=== PATIENT | male | born 1945 | race Caucasian/White ===

== ENCOUNTER 2021-05-26 05:03 | Inpatient (IN) | payer MEDICARE, OTHER ==
[~2021-05-26] VITALS: Ht 180.3 cm; Wt 88.7 kg
--- NOTE | 2021-05-26 05:20 | NUR ---
PT C/O OF RIGHT FLANK PAIN SINCE 2299 LADT NIGHT REPORTS NAUSEA, VOMITTIN, AND DIARRHEA. DENIES CP, SOB, AND HEADCAHE. [id number] TO MONIOTORS, BP ELEVATED, PT APPEARS IN PAIN. BED IN LOW, RAILS ENGAGED. CALL LIGHT ON LAP.
--- NOTE | 2021-05-26 05:24 | NUR ---
pt states he believes he has kidney stones hx of kidney stones.
[2021-05-26] MEDS ORDERED: ONDANSETRON 2MG/ML, 2ML IVPush ONE (05:30)
[2021-05-26] MEDS ORDERED: KETOROLAC 30 MG/1 ML IVPush ONE (05:30)
[2021-05-26] MEDS ORDERED: SODIUM CHLORIDE FLUSH 10ML SYR IVF ONE (05:30)
[2021-05-26] MEDS ORDERED: MORPHINE SULFATE 4 MG/ML, 1ML ONE ×2 (05:37→10:17)
[2021-05-26] MEDS ORDERED: ONDANSETRON 2MG/ML, 2ML ONE (05:37)
[2021-05-26] MEDS ORDERED: KETOROLAC 30 MG/1 ML ONE (05:37)
[2021-05-26] MEDS: MORPHINE SULFATE 4 MG/ML, 1ML IVPush PRN ×2 (05:50→10:19)
[2021-05-26] MEDS: PLEASE ENTER ALLERGIES MC SCH ×2 (06:00→14:00)
[2021-05-26 06:22] LABS: BASOPHILS % (AUTO) 1 % (0-1); EOSINOPHILS % (AUTO) 0 % (1-7); LYMPHOCYTES % (AUTO) 11 % (22-44); MEAN CORPUSCULAR HEMOGLOBIN 30.6 pg (27.5-34.5); MEAN CORPUSCULAR HGB CONC 33.8 g/dL (33.2-36.2); MEAN PLATELET VOLUME 9.5 fL (7.4-10.4); MONOCYTES % (AUTO) 2 % (2-9); NEUTROPHILS % (AUTO) 86 % (42-75); PLATELET COUNT 209 x10^3/uL (130-400); RED BLOOD COUNT 4.57 x10^6/uL (4.38-5.82); RED CELL DISTRIBUTION WIDTH 13.8 % (9.4-14.8)
[2021-05-26 06:26] LABS: ALBUMIN 3.9 g/dL (3.4-5.0); CALCIUM 9.1 mg/dL (8.5-10.1)
[2021-05-26 06:29] LABS: MICROSCOPIC INDICATED
[2021-05-26 06:30] LABS: ALANINE AMINOTRANSFERASE 23 U/L (12-78); ALKALINE PHOSPHATASE 74 U/L (45-117); BILIRUBIN,TOTAL 0.5 mg/dL (0.2-1.0); CREATININE 0.95 mg/dL (0.7-1.3); TOTAL PROTEIN 7.7 g/dL (6.4-8.2)
--- NOTE | 2021-05-26 06:50 | NUR ---
Bedside report from [facility]. Pt resting, no complaints, NAD.
[2021-05-26 06:53] LABS: ANION GAP 11 mmol/L (5-15); CHLORIDE 104 mmol/L (98-107)
--- NOTE | 2021-05-26 07:30 | NUR ---
Pt straight cath per policy.
[2021-05-26 08:22] LABS: MICROSCOPIC INDICATED
--- NOTE | 2021-05-26 10:49 | NUR ---
MD Howe at bedside.
[2021-05-26] MEDS: INSULIN LISPRO 100 UNITS/ML, PEN SQ-INSULIN SCH ×3 (11:00→19:54)
[2021-05-26] MEDS ORDERED: ACETAMINOPHEN 325 MG TABLET PO PRN (11:00)
[2021-05-26] MEDS ORDERED: ONDANSETRON 2MG/ML, 2ML IVPush PRN (11:00)
[2021-05-26] MEDS ORDERED: ONDANSETRON ODT 4 MG PO PRN (11:00)
[2021-05-26 12:17] VITALS: BP 159/72
[2021-05-26] MEDS: SODIUM CHLORIDE 0.9% 1,000 ML IV SCH (12:24)
[2021-05-26] MEDS ORDERED: PROCHLORPERAZINE 5 MG/ML, 2ML IVPush PRN (16:30)
[2021-05-26] MEDS: KETOROLAC 30 MG/1 ML IV PRN (16:34)
[2021-05-26 20:00] VITALS: BP 139/61
[2021-05-27] MEDS: KETOROLAC 30 MG/1 ML IV PRN ×2 (00:19→08:30)
[2021-05-27 01:34] VITALS: BP 116/64
[2021-05-27] MEDS: SODIUM CHLORIDE 0.9% 1,000 ML IV SCH (04:02)
[2021-05-27 04:32] LABS: BASOPHILS % (AUTO) 0 % (0-1); EOSINOPHILS % (AUTO) 0 % (1-7); LYMPHOCYTES % (AUTO) 12 % (22-44); MEAN CORPUSCULAR HEMOGLOBIN 30.1 pg (27.5-34.5); MEAN CORPUSCULAR HGB CONC 33.2 g/dL (33.2-36.2); MEAN PLATELET VOLUME 9.5 fL (7.4-10.4); MONOCYTES % (AUTO) 8 % (2-9); NEUTROPHILS % (AUTO) 79 % (42-75); PLATELET COUNT 188 x10^3/uL (130-400); RED BLOOD COUNT 4.25 x10^6/uL (4.38-5.82); RED CELL DISTRIBUTION WIDTH 13.9 % (9.4-14.8)
[2021-05-27 04:45] LABS: ANION GAP 4 mmol/L (5-15); CHLORIDE 107 mmol/L (98-107)
[2021-05-27] MEDS: INSULIN LISPRO 100 UNITS/ML, PEN SQ-INSULIN SCH ×2 (07:00→11:00)
[2021-05-27 08:22] VITALS: BP 148/72
[2021-05-27] MEDS ORDERED: TAMSULOSIN 0.4 MG CAP.ER.24H PO SCH (09:00)
[2021-05-27] MEDS ORDERED: OMNIPAQUE 350 MG/ML, 50 ML BOTTLE ONE (09:25)
[2021-05-27] MEDS ORDERED: CHLORHEXIDINE 15 ML UDC ONE (10:17)
[2021-05-27] MEDS ORDERED: FENTANYL PF 250 MCG/5ML ONE (10:29)
[2021-05-27] MEDS ORDERED: PROPOFOL 50 ML ONE (10:29)
[2021-05-27] MEDS ORDERED: LACTATED RINGERS 1,000 ML IV SCH (10:30)
[2021-05-27] MEDS ORDERED: CHLORHEXIDINE 15 ML UDC PO ONE (10:30)
[2021-05-27] MEDS ORDERED: ONDANSETRON 2MG/ML, 2ML IVPush PRN (11:00)
[2021-05-27] MEDS ORDERED: ACETAMINOPHEN 325 MG TABLET PO PRN (11:00)
[2021-05-27] MEDS ORDERED: MEPERIDINE/PF 25MG/0.5ML IVPush PRN (11:00)
[2021-05-27] MEDS ORDERED: LABETALOL 5MG/ML, 20ML IV PRN (11:00)
[2021-05-27] MEDS ORDERED: EPHEDRINE 50 MG/ML, 1ML IVPush PRN (11:00)
[2021-05-27] MEDS ORDERED: OXYcodone 5 MG/5 ML ORAL.SOL UDC PO PRN (11:00)
[2021-05-27] MEDS ORDERED: DIPHENHYDRAMINE 50 MG/ML, 1ML IVPush PRN (11:00)
[2021-05-27] MEDS ORDERED: EPHEDRINE 50 MG/ML, 1ML IM PRN (11:00)
[2021-05-27] MEDS ORDERED: FENTANYL PF 100 MCG/2ML IV PRN (11:00)
[2021-05-27] MEDS ORDERED: PROMETHAZINE 25 MG/ML, 1ML IVPush PRN (11:00)
[2021-05-27] MEDS ORDERED: morphine SULFATE 10 MG/ML, 1ML IVPush PRN (11:00)
[2021-05-27] MEDS ORDERED: DIAZEPAM 5 MG/ML, 2ML IVPush PRN (11:00)
[2021-05-27] MEDS ORDERED: CEFAZOLIN 1,000 MG ONE ×2 (11:08)
[2021-05-27] MEDS ORDERED: ONDA4TAB7 PO (11:46)
[2021-05-27] MEDS ORDERED: INDO50CA15 PO (11:46)
[2021-05-27] MEDS ORDERED: TAMS-11 PO (11:46)
[2021-05-27 14:04] VITALS: BP 135/71
== END 2021-05-27 15:45 | disposition home or self-care (01) | DRG 660 ==
LOC: ED 08:50 → 3N 09:50
PROVIDERS: ADMIT Internal Medicine; ATTEND Internal Medicine
PROC: 0T9B70Z Drainage of Bladder with Drainage Device, Via Natural or Artificial Opening (ICD-10-PCS; 2021-05-26)
PROC: 0TC68ZZ Extirpation of Matter from Right Ureter, Via Natural or Artificial Opening Endoscopic (ICD-10-PCS; 2021-05-27)
PROC: 0T768DZ Dilation of Right Ureter with Intraluminal Device, Via Natural or Artificial Opening Endoscopic (ICD-10-PCS; principal; 2021-05-27 10:30)
DX: N13.2 Hydronephrosis with renal and ureteral calculous obstruction (principal); E87.1 Hypo-osmolality and hyponatremia; I10 Essential (primary) hypertension; E11.65 Type 2 diabetes mellitus with hyperglycemia; Z20.822 Contact with and (suspected) exposure to COVID-19; Z87.442 Personal history of urinary calculi; Z87.891 Personal history of nicotine dependence
CPT/HCPCS: 36415; 74018; 74176; 76000; 80048; 80053; 81001; 82360; 82962; 83036; 83690; 85025; 87086; 87635; 88300; 93005; 96374; 96375; 96376; G0378; J0690; J1885; J2405; J2704; J3010; Q9967; C1769; C2617; J0780; J1815; J2270; J7030